=== PATIENT | female | born 1995 | race African-American/Black ===

== ENCOUNTER 2023-04-03 14:16 | Emergency (ER) | payer OTHER, BC ==
[2023-04-03 14:38] VITALS: BP 114/76; PULSE 84; RESP 16; TEMP 99.4; BMI 24.0
[2023-04-03] MEDS ORDERED: LIDOCAINE 5% TOPICAL PATCH TP ONE (14:51)
[2023-04-03] MEDS ORDERED: IBUPROFEN 600 MG TABLET (FP) PO ONE ×2 (14:51→14:56)
[2023-04-03] MEDS ORDERED: LIDOCAINE 5% TOPICAL PATCH ONE (14:56)
== END 2023-04-03 15:15 | disposition home or self-care (01) ==
LOC: FER 14:16
DX: M54.6 Pain in thoracic spine (principal); M25.511 Pain in right shoulder; S46.811A Strain of other muscles, fascia and tendons at shoulder and upper arm level, right arm, initial encounter; M25.571 Pain in right ankle and joints of right foot; M25.572 Pain in left ankle and joints of left foot; V49.40XA Driver injured in collision with unspecified motor vehicles in traffic accident, initial encounter; Y93.I9 Activity, other involving external motion
CPT/HCPCS: 99283-25